=== PATIENT | male | born 1940 | race Caucasian/White ===

== ENCOUNTER → 2018-01-06 10:53 | Outpatient (CLI) | payer MEDICARE, SELFPAY ==
[2018-01-06 11:48] LABS: International Normalized Ratio 3.3; Prothrombin Time (Protime)PT. 34.1 SECONDS (11.7-14.9)
== END ==
DX: Z95.2 Presence of prosthetic heart valve (principal)
CPT/HCPCS: 36415; 85610

== ENCOUNTER → 2018-01-19 15:50 | Outpatient (CLI) | payer MEDICARE, SELFPAY ==
[2018-01-19 17:52] LABS: Prothrombin Time (Protime)PT. 43.6 SECONDS (11.7-14.9)
[2018-01-19 21:24] LABS: International Normalized Ratio 4.6
== END ==
DX: Z95.2 Presence of prosthetic heart valve (principal)
CPT/HCPCS: 36415; 85610

== ENCOUNTER 2018-02-09 08:41 | Outpatient (RCR) | payer MEDICARE, SELFPAY ==
[2018-01-25 17:57] LABS: International Normalized Ratio 3.7; Prothrombin Time (Protime)PT. 37.3 SECONDS (11.7-14.9)
[2018-02-02 09:12] LABS: International Normalized Ratio 3.9; Prothrombin Time (Protime)PT. 38.3 SECONDS (11.7-14.9)
[2018-02-09 09:56] LABS: International Normalized Ratio 3.7; Prothrombin Time (Protime)PT. 37.1 SECONDS (11.7-14.9)
== END 2018-02-09 10:00 | disposition home or self-care (01) ==
LOC: LAB 08:41
DX: Z95.2 Presence of prosthetic heart valve (principal)
CPT/HCPCS: 36415; 85610

== ENCOUNTER 2018-02-16 08:04 | Outpatient (RCR) | payer MEDICARE, SELFPAY ==
[2018-02-16 08:44] LABS: Prothrombin Time (Protime)PT. 37.8 SECONDS (11.7-14.9)
[2018-02-16 09:35] LABS: International Normalized Ratio 3.8
== END 2018-02-16 10:00 | disposition home or self-care (01) ==
LOC: LAB 08:04
DX: Z95.2 Presence of prosthetic heart valve (principal)
CPT/HCPCS: 36415; 85610